=== PATIENT | female | born 1980 | race Caucasian/White ===

== ENCOUNTER 2017-10-14 09:41 | Emergency (ER) | payer OTHER ==
[~2017-10-14] VITALS: Ht 162.6 cm; Wt 74.8 kg
[~2017-10-14 09:41] MED LIST: ALBU90OI INH; ALPR1 PO; AMOX875 PO; Bactrim Ds Tab1 EACH PO; Bupropion Xl150 MG PO; CEPH500 PO; CLON.5; DIVA125EC PO; Esgic Tablet1 EACH PO; FLUT110OIA INH; FLUT44OIA INH; GABA300 PO; HYDR25SUP PR; Imitrex100 MG PO; Imitrex25 MG PO; LAVAP17G PO; Loxapine5 MG PO; Naprosyn500 MG PO; ONDA4 PO; ONDA4ODT MM; ONDA8 PO; OXYC1TAB11; Omeprazole20 M1; POTCHL10ER PO; PRODEXEL PO; PROGESTERONE200 MG PO; PROM25S PR; PROMETHEGAN RC; Pepcid40 MG PO; Prazosin HCl2 MG PO; Prednisone20 MG PO; Ranitidine HCl300 M1 PO; Senna8.6 MG PO; TRAM50 PO; TRAZ100 PO; TRAZ50; Tylenol325 MG PO; Ventolin/Prove6.7 GM INH; Vistaril50 MG PO; ZOLP5 PO; Zofran Odt4 MG PO; Zofran Odt8 MG SL
[2017-10-14] MEDS ORDERED: TRAM50 PO (09:47)
[2017-10-14] MEDS ORDERED: Loxapine25 MG PO (09:47)
[2017-10-14] MEDS ORDERED: Imitrex100 MG PO (09:47)
[2017-10-14] MEDS ORDERED: GABA600 PO (09:47)
[2017-10-14] MEDS ORDERED: Zofran Odt4 MG SL (10:10)
== END 2017-10-14 11:51 | disposition home or self-care (01) ==
LOC: ER 09:41
DX: G43.909 Migraine, unspecified, not intractable, without status migrainosus (principal); Z88.1 Allergy status to other antibiotic agents; Z88.8 Allergy status to other drugs, medicaments and biological substances; Z91.018 Allergy to other foods; Z79.899 Other long term (current) drug therapy; F17.200 Nicotine dependence, unspecified, uncomplicated
CPT/HCPCS: 96361; 96374; 96375; 99283; J0780; J1200; J1885; J7030

== ENCOUNTER → 2019-09-28 | Outpatient (CLI) | payer OTHER ==
[~2019-09-28] MED LIST changes: +GABA600 PO; +Loxapine25 MG PO; +Zofran Odt4 MG SL
== END | disposition home or self-care (01) ==
LOC: LAB 18:43 → LAB SHORT 18:43
DX: R10.30 Lower abdominal pain, unspecified (principal)
CPT/HCPCS: 87086

== ENCOUNTER → 2020-01-19 | Outpatient (CLI) | payer OTHER | END | disposition home or self-care (01) | DX: L02.01 Cutaneous abscess of face (principal) ==

== ENCOUNTER → 2020-05-16 | Outpatient (CLI) | payer OTHER | END | disposition home or self-care (01) | LOC: LAB SHORT 13:53 → LAB EV 13:53 | DX: L02.91 Cutaneous abscess, unspecified (principal) | CPT/HCPCS: 87070; 87075; 87077; 87186; 87205 ==

== ENCOUNTER 2020-07-24 11:10 | Day surgery (SDC) | payer OTHER ==
[~2020-07-24] VITALS: Ht 162.6 cm; Wt 87.7 kg
[2020-07-24] MEDS ORDERED: PARO25 PO (12:03)
[2020-07-24] MEDS ORDERED: BENZ1 PO (12:04)
[2020-07-24] MEDS ORDERED: METF500 PO (12:04)
[2020-07-24] MEDS ORDERED: ALPR.5 PO (12:05)
[2020-07-24] MEDS ORDERED: LAMO100 (12:05)
[2020-07-24] MEDS ORDERED: HYDR1TAB94 PO (12:07)
--- NOTE | 2020-07-24 13:15 | NUR ---
07/24/20 1315 Yeison Zuleta PT WITH THICK CALLOUSES ON FOOT. FOOT WAS VERY DIRTY. EXTRA CARE WAS TAKEN WITH THE CLEANING AND PREP OF THE FOOT.
--- NOTE | 2020-07-24 15:03 | NUR ---
07/24/20 1503 Juanita Najera INSTRUCTED PT TO BE NON WEIGHT BEARING WHILE USING CRUTCHES. PT NEED EXTRA TIME DEMONSTRATING HOW TO USE CRUTCHES.
== END 2020-07-24 14:54 | disposition home or self-care (01) ==
LOC: ORSCSDS 11:10
PROVIDERS: Podiatrist Foot & Ankle Surgery
PROC: 0QSP04Z Reposition Left Metatarsal with Internal Fixation Device, Open Approach (ICD-10-PCS; principal; 2020-07-24 12:30)
DX: S92.352A Displaced fracture of fifth metatarsal bone, left foot, initial encounter for closed fracture (principal); F17.210 Nicotine dependence, cigarettes, uncomplicated
CPT/HCPCS: C1713; J0171; J0690; J2250; J2405; J2704; J3010; J7120

== ENCOUNTER → 2020-08-17 | Outpatient (CLI) | payer OTHER ==
[~2020-08-17] MED LIST changes: +ALPR.5 PO; +BENZ1 PO; +HYDR1TAB94 PO; +LAMO100; +METF500 PO; +PARO25 PO
== END | disposition home or self-care (01) ==
LOC: LAB SHORT 15:40 → LAB 15:40
DX: D48.5 Neoplasm of uncertain behavior of skin (principal)
CPT/HCPCS: 87070; 87075; 87077; 87147; 87186; 87205

== ENCOUNTER → 2020-09-05 | Outpatient (CLI) | payer OTHER | LOC: LAB SHORT 19:00 | DX: D48.5 Neoplasm of uncertain behavior of skin (principal) | CPT/HCPCS: 87070; 87205 ==

== ENCOUNTER → 2021-04-26 | Outpatient (CLI) | payer OTHER ==
[~2021-04-26] MED LIST changes: +Vibramycin100 MG PO
[2021-04-26 17:22] LABS: BASOPHILS ABSOLUTE AUTO 0.05 K/mm3 (0.00-0.23); BASOPHILS PERCENT AUTO 1 % (0-2); EOSINOPHILS ABSOLUTE AUTO 0.29 K/mm3 (0.00-0.68); EOSINOPHILS PERCENT AUTO 3 % (0-6); Hematocrit 35.9 % (33.0-51.0); Hemoglobin 12.1 g/dL (11.5-16.0); IMMATURE GRAN ABSOLUTE AUTO 0.07 K/mm3 (0.00-0.10); IMMATURE GRAN PERCENT AUTO 1 % (0-1); LYMPHOCYTES ABSOLUTE AUTO 1.12 K/mm3 (0.84-5.20); LYMPHOCYTES PERCENT AUTO 12 % (21-46); MONOCYTES ABSOLUTE AUTO 0.51 K/mm3 (0.16-1.47); MONOCYTES PERCENT AUTO 5 % (4-13); Mean Corpuscular HGB 34.7 pg (26.0-34.0); Mean Corpuscular HGB Conc 33.7 g/dL (31.5-36.5); Mean Corpuscular Volume 103 fL (80-100); NEUTROPHILS PERCENT AUTO 79 % (41-73); Platelet Count 215 K/mm3 (150-400); RDW Coefficient Variation 12.8 % (11.7-14.2); RDW Standard Deviation 47.5 fL (35.1-46.3); Red Blood Cell Count 3.49 M/mm3 (3.80-5.20); White Blood Cell Count 9.54 K/mm3 (4.00-11.30)
[2021-04-26 17:28] LABS: Bun/Creatinine Ratio 6.3 (12.0-20.0); Creatinine, Blood 1.27 mg/dL (0.40-1.00); Potassium, Blood 3.7 mmol/L (3.5-5.5)
== END | disposition home or self-care (01) ==
LOC: LAB 17:16 → LAB SHORT 17:16
PROVIDERS: Family Medicine
DX: L03.113 Cellulitis of right upper limb (principal)
CPT/HCPCS: 80048; 85025; 86140

== ENCOUNTER 2021-04-27 12:32 | Emergency (ER) | payer OTHER ==
[~2021-04-27] VITALS: Ht 162.6 cm; Wt 90.7 kg
[~2021-04-27 12:32] MED LIST changes: -Vibramycin100 MG PO
[2021-04-27] MEDS ORDERED: HYDR1TAB94 PO ×2 (14:13→14:32)
[2021-04-27] MEDS ORDERED: Vibramycin100 MG PO (14:13)
== END 2021-04-27 15:04 | disposition home or self-care (01) ==
LOC: ER 12:32
DX: L02.511 Cutaneous abscess of right hand (principal); B95.62 Methicillin resistant Staphylococcus aureus infection as the cause of diseases classified elsewhere; Z88.1 Allergy status to other antibiotic agents; Z91.018 Allergy to other foods; Z88.5 Allergy status to narcotic agent; Z88.8 Allergy status to other drugs, medicaments and biological substances; Z79.84 Long term (current) use of oral hypoglycemic drugs; Z79.899 Other long term (current) drug therapy
CPT/HCPCS: 10060; 76882; 87070; 87075; 87077; 87147; 87186; 87205; 90471; 90714; 96372-59; 99283-25; J1885

== ENCOUNTER 2021-06-04 13:52 | Emergency (ER) | payer OTHER ==
[~2021-06-04] VITALS: Ht 162.6 cm; Wt 87.5 kg
[~2021-06-04 13:52] MED LIST changes: +Vibramycin100 MG PO
[2021-06-04] MEDS ORDERED: Vibramycin100 MG PO (15:30)
== END 2021-06-04 15:53 | disposition home or self-care (01) ==
LOC: ER 13:52
DX: S60.311A Abrasion of right thumb, initial encounter (principal); S60.511A Abrasion of right hand, initial encounter; Z88.1 Allergy status to other antibiotic agents; Z88.5 Allergy status to narcotic agent; Z88.8 Allergy status to other drugs, medicaments and biological substances; Z91.018 Allergy to other foods; Z79.899 Other long term (current) drug therapy; Z79.84 Long term (current) use of oral hypoglycemic drugs; X58.XXXA Exposure to other specified factors, initial encounter
CPT/HCPCS: 73140; 76882; 99283-25

== ENCOUNTER 2022-04-03 01:22 | Inpatient (IN) | payer OTHER ==
[~2022-04-03] VITALS: Ht 170.2 cm; Wt 84.4 kg
[~2022-04-03 01:22] MED LIST changes: -GABA600 PO; -LAMO100; +Lamictal200 MG PO
[2022-04-03 02:10] LABS: PCO2 Arterial 51.2 mmHg (35-45); PO2 Arterial 104 mmHg (80-100)
[2022-04-03 02:11] LABS: pH Blood Arterial 7.29 (7.35-7.45)
[2022-04-03 02:18] LABS: BASOPHILS ABSOLUTE AUTO 0.02 K/mm3 (0.00-0.23); BASOPHILS PERCENT AUTO 1 % (0-2); EOSINOPHILS PERCENT AUTO 0 % (0-6); Hematocrit 37.1 % (33.0-51.0); IMMATURE GRAN ABSOLUTE AUTO 0.02 K/mm3 (0.00-0.10); IMMATURE GRAN PERCENT AUTO 1 % (0-1); LYMPHOCYTES ABSOLUTE AUTO 1.43 K/mm3 (0.84-5.20); LYMPHOCYTES PERCENT AUTO 39 % (21-46); MONOCYTES ABSOLUTE AUTO 0.26 K/mm3 (0.16-1.47); MONOCYTES PERCENT AUTO 7 % (4-13); Mean Corpuscular HGB Conc 32.3 g/dL (31.5-36.5); Mean Corpuscular Volume 102 fL (80-100); Mean Platelet Volume 9.7 fL (9.1-12.4); NEUTROPHILS ABSOLUTE AUTO 1.98 K/mm3 (1.96-9.15); NEUTROPHILS PERCENT AUTO 54 % (41-73); Platelet Count 186 K/mm3 (150-400); RDW Coefficient Variation 12.3 % (11.7-14.2); RDW Standard Deviation 45.9 fL (35.1-46.3); Red Blood Cell Count 3.64 M/mm3 (3.80-5.20); White Blood Cell Count 3.71 K/mm3 (4.00-11.30)
[2022-04-03 02:37] LABS: International Normalized Ratio 1.02; Prothrombin Time Results 10.7 Sec (9.7-11.5)
[2022-04-03 02:44] LABS: Salicylate <1.7 mg/dL (2.8-20.0)
[2022-04-03 02:46] LABS: Acetaminophen, Random <2.0 ug/mL (10.0-30.0); Alanine Aminotransfer (ALT/SGP 32 U/L (12-78); Albumin, Blood 3.4 g/dL (3.4-5.0); Albumin/Globulin Ratio 1.1 (0.8-1.8); Alk Phos 72 U/L (50-136); Anion Gap 14 mmol/L (6-16); Aspartate Aminotrans (AST/SGOT 31 U/L (12-37); Bilirubin, Total 0.3 mg/dL (0.1-1.0); Blood Urea Nitrogen 11 mg/dL (8-24); Bun/Creatinine Ratio 8.5 (12.0-20.0); CO2, Blood 23 mmol/L (21-32); Calcium, Blood 7.8 mg/dL (8.5-10.1); Chloride, Blood 104 mmol/L (98-108); Globulin, Blood 3.1 g/dL (2.2-4.0); Glomerular Filtration Rate 53 (60-); Glucose, Blood 171 mg/dL (70-99); Potassium, Blood 3.4 mmol/L (3.5-5.5); Sodium, Blood 141 mmol/L (136-145); Total Protein, Blood 6.5 g/dL (6.4-8.2)
[2022-04-03 02:55] LABS: Source, Urine Foley catheter
[2022-04-03 03:00] LABS: Bilirubin, Urine Neg (Neg); Blood, Urine Neg (Neg); Glucose Qualitative, Urine Neg (Neg); Ketones, Urine Neg (Neg); Leukocyte Esterase, Urine 1+ (Neg); Nitrite, Urine Neg (Neg); Protein, Urine 1+ (Neg); Urobilinogen, Urine NORM (Normal)
[2022-04-03 03:11] LABS: Appearance, Urine Clear (Clear); Color, Urine Yellow (P-Yellow)
[2022-04-03 03:12] LABS: Bacteria Few /hpf; Red Blood Cells, Urine Not Seen /hpf (0-2); Squamous Epithelial Cells Few /hpf (Few); White Blood Cells, Urine 0-2 /hpf (0-5)
[2022-04-03 03:22] LABS: U Amphetamine Screen DETECTED; U Barbituate Screen Not Detected; U Benzodiazapine Screen DETECTED; U Buprenorphine Screen Not Detected; U Cannabinoids Screen DETECTED; U Cocaine Screen Not Detected; U Methadone Screen Not Detected; U Methamphetamine Screen DETECTED; U Opiates Screen Not Detected; U Oxycodone Screen Not Detected; U Phencyclidine Screen Not Detected; U Propoxyphene Screen Not Detected
[2022-04-03 03:33] LABS: Influenza A, PCR NEGATIVE (NEGATIVE); Influenza B, PCR NEGATIVE (NEGATIVE); Resp Syncytial Virus, PCR NEGATIVE (NEGATIVE); SARS-Cov-2 (COVID-19) PCR, MMC NEGATIVE (NEGATIVE)
[2022-04-03 04:16] LABS: Ethanol (Alcohol), Blood, Med 98 mg/dL
[2022-04-03] MEDS ORDERED: PROP10 PO (06:53)
[2022-04-03] MEDS ORDERED: MEDR10 PO (06:55)
[2022-04-03] MEDS ORDERED: OLANZAPINE ODT20 MG PO (06:56)
--- NOTE | 2022-04-03 07:15 | NUR ---
ASSUMPTION OF CARE PT REMAINS INTUBATED AND SEDATED AT THIS TIME. VENT SETTINGS AC/VC+ 18/400/5/30%. SHE IS RECEIVING PROPOFOL 80MCG/KG/MIN, VERSED 7MG/HR, AND NS 150ML/HR. SHE IS IN 4 POINT SOFT RESTRAINTS AT THIS TIME. PT BECOMES AGITATED DURING CARE AND NOXIOUS STIMULI WITH FACIAL GRIMACING AND MOVEMENT OF ALL 4 EXTREMITIES. SHE DOES NOT FOLLOW COMMANDS. LUNGS CLEAR IN UPPER LOBES, COARSE AND DIMINISHED IN BASES. OGT CLAMPED. BOWEL TONES HYPOACTIVE. FLORES PATENT AND DRAINING CLEAR YELLOW URINE TO GRAVITY. IO TO L LEG, POWERGLIDE TO MADY, AND PERIPHERAL TO LFA. VSS AT THIS TIME. SEE SHIFT ASSESSMENT.
--- NOTE | 2022-04-03 07:30 | NUR ---
0445: PT ARRIVES TO ICU VIA GURNEY FROM ER FOR DX ACUTE RESPIRATORY FAILURE WITH HYPOXIA, PT IS INTUBATED AND RT IS AT BEDSIDE FOR VENT SET UP, ETT MEASURES 23 CM AT TEETH. PT IS FULLY AWAKE ON ARRIVAL AND OPERATIONS SCHEDULER REPORTS THAT VERSED GTT WAS INCREASED TO 5 MG/HR DURING TRANSPORT TO ICU FROM RATE OF 1.5 MG/HR. PT IS SITTING UP AND ATTEMPTING TO SCOOT BUTTOCKS TO EDGE OF BED, DOES NOT REDIRECT WELL, PROPOFOL STARTED INFUSING. IV ACCESS IS NOTED 20 TO RIGHT BREAST WHICH IS INFUSING POTASSIUM AT 10 MEQ/HR, REDNESS IS NOTED SURROUNDING INSERTION SITE, POTASSIUM DISCONNECTED AND IV FLUSHED WITH BLANCHING NOTED TO BREAST, IV DC'D CATH INTACT. IV TO LEFT FOREARM DOES NOT ASPIRATE BLOOD INTO TUBING BUT DOES APPEAR TO FLUSH WELL, PROPOFOL AND VERSED INFUSING TO THIS ACCESS SITE. ATTEMPT TO FLUSH IO TO LEFT LOWER EXTREMITY RESULTS IN PT THRASHING ON BED AND KICKING FEET. IV ACCESS VIA ULTRASOUND IS ATTEMPTED TO RIGHT UPPER ARM WITHOUT SUCCESS BY LUDIN WILDE RN, EXTENDED DWELL ACCESS IS ATTEMPTED TO RIGHT UPPER ARM X 2 WITHOUT SUCCESS BY RAMYA LEÓN RN, EXTENDED DWELL ACCESS TO LEFT UPPER ARM IS ESTABLISHED BY NARINDER FARFAN RN AT 1ST ATTEMPT. PT IS NOTED TO CONTINUE TO SIT UP AND SCOOT AROUND TO EDGES OF BED DURING ACCESS ATTEMPTS. REFLEX LACTIC ACID SPECIMEN OBTAINED AND SENT TO LAB. PROPOFOL HAS BEEN TITRATED UP TO 80 MCG/KG/MIN, VERSED TITRATED TO 7 MG/HR, NS AT 150 ML/HR STARTED INFUSING PER ORDERS, POTASSIUM INFUSION RESUMED CONCURRENT WITH NS. PT CONTINUES INTERMITTENTLY AGITATED AND RESTLESS IN BED.
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
--- NOTE | 2022-04-03 08:20 | NUR ---
UPDATE PT WAKENING DURING CARE. SHE OPENS EYES TO COMMAND, IS ABLE TO ANSWER QUESTIONS BY NODDING/SHAKING HEAD, MAKES PURPOSEFUL MOVEMENTS WITH ALL EXTREMITIES. SHE IS ABLE TO STRONGLY SQUEEZE HANDS AND WIGGLE TOES TO COMMAND. PT C/O BACK PAIN AT THIS TIME.
--- NOTE | 2022-04-03 09:30 | NUR ---
UPDATE DR MORRIS AT BEDSIDE FOR EVAL. PLAN TO CHANGE SEDATIVE MEDICATION AND POSSIBLE EXTUBATION TODAY. VENT SETTINGS CHANGED TO SPONT. RR 15-20, TV 300S. PT STILL ABLE TO OPEN EYES AND FOLLOW COMMANDS ALTHOUGH SOMETIMES SLOW TO RESPOND. DURING CONVERSATION PT NODS HEAD "YES" TO TAKING MEDICATION LAST NIGHT. SHE SHAKES HEAD "NO" WHEN ASKED IF SHE TOOK MORE THAN PRESCRIBED. WHEN ASKED ABOUT RECREATIONAL DRUGS PT ATTEMPTS TO MOUTH WORDS THAT ARE NOT UNDERSTOOD AND CLOSES EYES. WHEN ASKED IF THIS WAS A SUICIDE ATTEMPT SHE SHAKES HEAD "NO".
--- NOTE | 2022-04-03 12:00 | NUR ---
HOME MEDICATIONS MULTIPLE HOME MEDICATIONS ON BEDSIDE TABLE. ALL BOTTLES PACKAGED IN GREEN MED BAG AND SENT TO PHARMACY.
--- NOTE | 2022-04-03 14:13 | NUR ---
APNEIC PERIODS PT REMAINS ON SPONT SINCE APPROX 0930 THIS AM. APNEIC PERIOD TRIGGERS AC/VC ON VENT. OSCAR TREVIZO AND THIS RN AT BEDSIDE. PT WAKENS EASILY TO VERBAL STIMULI, IS ABLE TO ANSWER QUESTIONS BY NODDING/SHAKING HEAD, THEN FALLS BACK ASLEEP. SHE IS RECEIVING PRECEDEX 0.5MCG/KG/HR, TITRATED TO 0.2MCG/KG/HR. PROPOFOL HAS BEEN ON STANDBY APPROX 1HR. PT HAS MULTIPLE APNEIC PERIODS WHERE VENT TRIGGERS TO AC/VC. DR MORRIS AT BEDSIDE. PLAN TO REMAIN ON SPONT TOLERATED AND MONITOR UNTIL TOMORROW.
--- NOTE | 2022-04-03 16:13 | NUR ---
UPDATE PT AWAKE DURING BEDBATH. PROPOFOL ON STANDBY AND PRECEDEX AT 0.2MCG/KG/MIN. SHE IS ANSWERING QUESTIONS BY NODDING/SHAKING HEAD, COMMUNICATING BY WRITING, AND MAKES STRONG PURPOSEFUL MOVEMENTS. RESTRAINTS OFF DURING CARE. EXPLAINED IMPORTANCE OF NOT TOUCHING ETT SEVERAL TIMES, PT NODS IN UNDERSTANDING. PT HELPS DURING CARE, WRITES QUESTIONS ON PAPER, TEXTS ON CELL PHONE. DR MORRIS AT BEDSIDE FOR EVAL. PT CONTINUES TO OCCASIONALLY HAVE APNEIC PERIODS. SHE WILL REMAIN INTUBATED UNTIL TOMORROW. BILAT SOFT WRIST RESTRAINTS APPLIED, EXPLAINED TO PT, PT NODS IN UNDERSTANDING. PRECEDEX TITRATED TO 0.5MCG/KG/HR FOR COMFORT. CALL LIGHT WITHIN REACH.
--- NOTE | 2022-04-03 17:53 | NUR ---
SHIFT SUMMARY PT REMAINS INTUBATED WITH VENT SETTINGS SVC 8/400/5/25%. SHE IS RECEIVING PRECEDEX 0.5MCG/KG/HR. SHE WAKENS TO VERBAL STIMULI, COMMUNICATES BY NODDING/SHAKING HEAD AND WRITING. C/O THROAT AND BACK PAIN, MEDICATED PER EMAR. OGT CLAMPED. BOWEL TONES HYPOACTIVE. FLORES PATENT AND DRAINING TO GRAVITY. URINE YELLOW, OCCASIONALLY CLOUDY WITH SEDIMENT. WILL REPORT TO ONCOMING RN.
--- NOTE | 2022-04-03 21:21 | NUR ---
ASSUMED CARE AT 1900 PATIENT IS INTUBATED AND SEDATED ON PRECEDEX, ALERT AND ORIENTED. FOLLOWS COMMANDS AND IS ABLE TO WRITE TO COMMUNICATE. ABLE TO NOD YES TO PAIN, MEDICATED PER EMAR. PATIENT ON VENT SIMV, EVEN WHEN AWAKE PATIENT TAKING SLOW SHALLOW BREATHS, RT TO ROOM TO CHANGE PS, PATIENT CONSISTENTLY COUGHING AND COMPLAINS OF PAIN IN HER THROAT, MEDICATED PER EMAR. PATIENT NO LONGER FIGHTING VENT HOWEVER BREATHS SHALLOW AND SLOW. UNABLE TO KEEP PATIENT COMFORTABLE AND TOLERATING VENT WITHOUT DROPPING RR AND DRIVE, RT TO ROOM AND PATIENT CHANGED TO AC VC+ 16/400/5/25%. PATIENT NOW RESTING COMFORTABLY. SUCTIONING MODERATE AMOUNTS OF WHELAN SPUTUM FROM ETT. HR SR 80S, BP STABLE, NODS NO TO CP/PRESSURE. OG TO LIS, WITH SMALL AMOUNT OF GREEN BILE. TEMP FLORES PATENT AND DRAINING TO GRAVITY. PATIENT ABLE TO MOVE SELF IN BED, ASSISTANCE OFFERED EVERY TWO HOURS. CALL LIGHT IN REACH. SEE SHIFT ASSESSMENT FOR MORE INFORMATION.
--- NOTE | 2022-04-03 23:56 | NUR ---
PATIENT IS BECOMING MORE AGITATED AND FIGHTING THE VENTILATOR, ATTEMPTING TO PULL ETT OUT, NODS YES TO DISCOMFORT, PRECEDEX HAS BEEN AT 0.7MCG/KG/HR AND FENTANYL GIVEN Q2 HOURS, PROPOFOL RESTARTED.
[2022-04-04 03:27] LABS: BASOPHILS ABSOLUTE AUTO 0.02 K/mm3 (0.00-0.23); BASOPHILS PERCENT AUTO 0 % (0-2); EOSINOPHILS ABSOLUTE AUTO 0.02 K/mm3 (0.00-0.68); EOSINOPHILS PERCENT AUTO 0 % (0-6); Hematocrit 29.1 % (33.0-51.0); Hemoglobin 10.3 g/dL (11.5-16.0); IMMATURE GRAN ABSOLUTE AUTO 0.02 K/mm3 (0.00-0.10); IMMATURE GRAN PERCENT AUTO 0 % (0-1); LYMPHOCYTES ABSOLUTE AUTO 0.85 K/mm3 (0.84-5.20); LYMPHOCYTES PERCENT AUTO 18 % (21-46); MONOCYTES ABSOLUTE AUTO 0.35 K/mm3 (0.16-1.47); MONOCYTES PERCENT AUTO 7 % (4-13); Mean Corpuscular HGB 34.2 pg (26.0-34.0); Mean Corpuscular HGB Conc 35.4 g/dL (31.5-36.5); Mean Platelet Volume 9.5 fL (9.1-12.4); NEUTROPHILS ABSOLUTE AUTO 3.45 K/mm3 (1.96-9.15); NEUTROPHILS PERCENT AUTO 73 % (41-73); Platelet Count 149 K/mm3 (150-400); RDW Coefficient Variation 12.3 % (11.7-14.2); RDW Standard Deviation 43.2 fL (35.1-46.3); Red Blood Cell Count 3.01 M/mm3 (3.80-5.20); White Blood Cell Count 4.71 K/mm3 (4.00-11.30)
[2022-04-04 03:28] LABS: Mean Corpuscular Volume 97 fL (80-100)
[2022-04-04 03:54] LABS: Bun/Creatinine Ratio 8.7 (12.0-20.0); Creatinine, Blood 0.92 mg/dL (0.40-1.00); Magnesium, Blood 1.4 mg/dL (1.6-2.4); Phosphorus, Blood 1.6 mg/dL (2.5-4.9); Potassium, Blood 3.2 mmol/L (3.5-5.5)
--- NOTE | 2022-04-04 07:43 | NUR ---
SHIFT SUMMARY PATIENT REMAINS INTUBATED, SEDATION INCREASED THROUGH THE NIGHT DUE TO DISCOMFORT AND AGITATION, PATIENT UNABLE TO TOLERATE VENT, ATTEMPTING TO PULL TUBE OUT. PROPOFOL AND PRECEDEX INF WITH FENTANYL PRN. VENT SETTING UNCHANGED FROM PREVIOUS NOTE. STILL SUCTIONING MODERATE AMOUNTS OF THICK WHELAN SPUTUM FROM ETT. HR SR 60s-80s. BP STABLE. TEMP FLORES PATENT AND DRAINING TO GRAVITY. OG TO LIS WITH GREEN BILE OUTPUT. PATIENT ABLE TO REPOSITION SELF, ASSISTANCE OFFERED Q2 HOURS.
--- NOTE | 2022-04-04 08:00 | NUR ---
ASSUMED CARE: REPORT RECEIVED FROM LUDIN Franco RN. ASSUMED CARE OF THIS PT AT APPROX 0700. ON ASSESSMENT, THE PT IS RESTING QUIETLY. PROPOFOL & PRECEDEX INFUSING FOR SEDATION/ VENT TOLERANCE. SHE IS ABLE TO AWAKEN EASILY TO VERBAL STIMULUS & FOLLOW DIRECTIONS, ANSWER YES/ NO QUESTIONS W/O DIFFICULTY. LS ARE COARSE IN UPPERS, DIM T/O. VENT SETTINGS: AC/VC 16/400/5/25% W/ O2 SATS > 95%. MONITOR SHOWS SR W/ HR 60-80s, BP STABLE. OGT IN PLACE TO LIS, SMALL AMNT GREEN BILE OUTPUT NOTED. TEMP FLORES PATENT/ DRAINING YELLOW URINE. SKIN CONDITION OVERALL FRAGILE, W/ NUMEROUS AREAS OF ECCHYMOSIS. Q2H REPOSITIONING TO MAINTAIN SKIN INTEGRITY. WILL CONTINUE TO MONITOR & UPDATE NEEDED.
--- NOTE | 2022-04-04 10:20 | NUR ---
DR MORRIS / SEDATION VACATION: PROVIDER AT BEDSIDE TO EVAL PT THIS AM. HE WOULD LIKE TO EXTUBATE THIS PT TODAY & HAS PLACED THE VENT ON SPONTANEOUS MODE W/ PS 10, PEEP 5 & 25% FIO2 AT 0925. PROPOFOL PLACED ON STANDBY AT THIS TIME, PRECEDEX CONTINUES INFUSING. PS INCREASED TO 12 AT 0930 BY RT ROJELIO, FOR APNEA ALARMING ON VENTILATOR, DECREASED BACK TO 10 AT APPROX 0945 WHEN PT MORE AWAKE & ABLE TO BETTER TOLERATE. THE PT CONTINUES TO DO WELL ON SPONTANEOUS & HAS BEEN ABLE TO WRITE IN FULL SENTENCES USING A PEN & PAPER. SHE ASKS WHEN THE ETT WILL BE REMOVED & "WHAT HAPPENED" TO HER REQUIRING HOSPITALIZATION. SHE HAS BRIEF PERIODS OF APNEA & THEN TAKES LARGE BREATHS IN W/ TVs READING > 1000 ML. NO DESATS NOTED DURING THIS TIME. DR MORRIS BACK TO BEDSIDE AT APPROX 1020 & STS THAT EXTUBATION IS OKAY TO OCCUR AT APPROX 1040 IF THE PT CONTINUES TO TOLERATE WELL. RT ROJELIO, NOTIFIED.
--- NOTE | 2022-04-04 11:24 | NUR ---
EXTUBATION / SI PRECAUTIONS / DR HERNANDES: THE PT HAS CONTINUED TO DO WELL DURING THIS TIME & HAS BEEN EXTUBATED TO ROOM AIR AT APPROX 1047. SHE HAS A STRONG COUGH & IS ABLE TO EXPECTORATE SPUTUM EFFICIENTLY, SHE USES YANKAUR FOR ORAL SUCTION W/O DIFFICULTY. RESTRAINTS REMOVED AT 1045 JUST PRIOR TO EXTUBATION. AFTER EXTUBATION, THE PT HAS BEEN ABLE TO SPEAK IN HUSHED TONES. THIS RN REMAINS AT BEDSIDE DURING THIS TIME TO COMPLETE SUICIDE RISK REASSESSMENT. THE PT HAS ANSWERED "NO" TO ALL QUESTIONS ON [place] RISK ASSESSMENT. SHE STS THAT SHE USES DRUGS RECREATIONALLY BUT HAD NO INTENTION OF KILLING HERSELF & HAS NO SUICIDAL IDEATION. DR HERNANDES CONTACTED REGARDING THIS WHILE THIS RN REMAINS AT BEDSIDE. DR HERNANDES HAS COME DOWN & EVALUATED THE PT. SHE HAS PROVIDED THE SAME INFORMATION TO DR HERNANDES SHE DID TO THIS RN & NO SI PRECAUTIONS ARE IMPLEMENTED. DR HERNANDES STS THAT ONCE PRECEDEX TITRATED OFF, THE PT IS OKAY TO BE MEDICAL STATUS W/ TELE & THAT SHE WILL BE ABLE TO D/C HOME TOMORROW IF OFF OF OXYGEN & OTHERWISE DOING WELL. NO OTHER CHANGES AT THIS TIME.
--- NOTE | 2022-04-04 13:00 | NUR ---
ASSUMPTION OF CARE/ INITIAL ASSESSMENT PATIENT ALERT AND ORIENTED X 3. PATIENT THOUGHT SHE WAS IN [place]. BLIND IN R EYE. GOOD STRENGTH, ALTHOUGH OFF BALANCE ON FEET. 1 PERSON ASSIST. TEMP OF 99.2 DEGREES FAHRENHEIT. COMPLAINS OF THROAT AND EARS BEING SORE FROM BEING INTUBATED. PATIENT ON 2 L NC TO KEEP SATS 90% AND GREATER. LUNGS COARSE THROUGHOUT. PATIENT HAS PRODUCTIVE COUGH BUT IS SWALLOWING PHLEGM. PATIENT IN SR, HR IN THE 70S. SBP IN THE LOW 100S. ABD MODERATELY DISTENDED, HYPOACTIVE BOWEL SOUNDS NOTED. FLORES DRAINING YELLOW COLORED URINE. SKIN COOL AND DUSKY. SCATTERED BRUISES NOTED T/O BODY. SCAB TO L EYE/ NOSE. NS INFUSING TKO. BED LOW, CALL LIGHT IN REACH, BED ALARM ON PATIENT IMPULSIVE. WILL CONTINUE TO MONITOR PATIENT FREQUENTLY THROUGHOUT SHIFT.
--- NOTE | 2022-04-04 16:04 | NUR ---
PATIENT AFEBRILE NOW. PATIENT DECREASED TO RA AND REMAINS SATTING 90% AND GREATER. HR IN THE 70S. SBP IN THE 1-TEENS. ORDER TO DC FLORES, HOWEVER PATIENT DOES NOT WANT FLORES OUT AT THIS TIME; STATED SHE "WANTS TO SLEEP SOME MORE FIRST". NO COMPLAINTS AT THIS TIME. NO OTHER ACUTE CHANGES TO NOTE ON AT THIS TIME.
--- NOTE | 2022-04-04 17:15 | NUR ---
SHIFT SUMMARY PATIENT ALERT AND ORIENTED. TMAX ON DAY SHIFT OF 100.2 DEGREES FAHRENHEIT. PATIENT AFEBRILE AT LAST CHECK. PATIENT HAS GOOD STRENGTH BUT 1 PERSON ASSIST IS OFF BALANCE ON FEET AT THIS TIME. PATIENT HAS REMAINED NAPPING ON AND OFF. PATIENT DECREASED FROM 2 L NC TO RA AND REMAINS SATTING 90% AND GREATER. HR 60S TO 80S AND SBP LOW 100S TO 140S ON DAY SHIFT. PATIENT HAS REMAINED IN SR. NO BM THIS SHIFT. DIET BEING ADVANCED SLOWLY. 1700 MLS OF YELLOW URINE FROM FLORES. ORDER TO DC FLORES; PATIENT DOES NOT WANT OUT YET. NO CHANGES TO SKIN NOTED. PATIENT REPOSITIONING SELF. NS INFUSING TKO. PATIENT RECEIVED 30 MM KPHOS AND 2 G MAG REPLACEMENT ON DAY SHIFT. PRN XANAX ON EMAR; PATIENT TAKES AT HOME. NO COMPLAINTS AT THIS TIME. PATIENT WILL BE TRANSFERRED TO MEDICAL FLOOR SHORTLY.
--- NOTE | 2022-04-04 17:45 | NUR ---
PATIENT TRANSFERRED SUCCESSFULLY TO MEDICAL FLOOR, ROOM 310. ALL BELONGINGS SENT WITH PATIENT.
--- NOTE | 2022-04-04 18:56 | NUR ---
SHIFT SUMMARY PT AXO, COOPERATIVE BUT FORGETFUL. PT ARRIVED TO ROOM AT 1743. PT STATES THAT SHE WANTS TO KEEP FLORES IN UNTIL SHE GETS SOME REST. IV PATENT AND INFUSING TKO. PT'S FATHER AT BEDSIDE WHO WANTED AN UPDATE ON PATIENT. WHEN THIS NURSE ASKED PERMISSION TO SPEAK WITH HER FATHER SHE WAS GUARDED AND SLIGHTLY SHAKING HER HEAD NO. SHE STATED THAT HE COULD KNOW GENERAL INFORMATION BUT DIDNT WANT HIM TO KNOW SPECIFICS. UPON SHIFT CHANGE PATIENT STATED THAT WE COULD SHARE WHICH SUBSTANCES AND MORE SPECIFIC INFORMATION. VSS. REPORT GIVEN TO WELDER APPRENTICE ARC NURSE WHO ASSUMES CARE AT THIS TIME.
[2022-04-04] MEDS ORDERED: Loxapine50 MG PO (22:17)
[2022-04-05 05:27] LABS: BASOPHILS ABSOLUTE AUTO 0.02 K/mm3 (0.00-0.23); BASOPHILS PERCENT AUTO 1 % (0-2); EOSINOPHILS ABSOLUTE AUTO 0.01 K/mm3 (0.00-0.68); EOSINOPHILS PERCENT AUTO 0 % (0-6); Hematocrit 28.7 % (33.0-51.0); IMMATURE GRAN ABSOLUTE AUTO 0.02 K/mm3 (0.00-0.10); IMMATURE GRAN PERCENT AUTO 1 % (0-1); LYMPHOCYTES ABSOLUTE AUTO 0.88 K/mm3 (0.84-5.20); LYMPHOCYTES PERCENT AUTO 24 % (21-46); MONOCYTES ABSOLUTE AUTO 0.28 K/mm3 (0.16-1.47); MONOCYTES PERCENT AUTO 8 % (4-13); Mean Corpuscular HGB 33.2 pg (26.0-34.0); Mean Corpuscular HGB Conc 34.8 g/dL (31.5-36.5); Mean Corpuscular Volume 95 fL (80-100); NEUTROPHILS ABSOLUTE AUTO 2.43 K/mm3 (1.96-9.15); NEUTROPHILS PERCENT AUTO 67 % (41-73); Platelet Count 175 K/mm3 (150-400); RDW Coefficient Variation 12.1 % (11.7-14.2); Red Blood Cell Count 3.01 M/mm3 (3.80-5.20); White Blood Cell Count 3.64 K/mm3 (4.00-11.30)
--- NOTE | 2022-04-05 05:35 | NUR ---
NO ACUTE CHANGES DURING THE NIGHT. FLORES AND PERIPHERAL IV REMOVED AT START OF SHIFT. PT INDEPENDENT IN ROOM NEEDING OCCASIONAL HELP WHEN HOOKED UP TO THE IV. PT GIVEN XANEX TWICE AND TYLENOL FOR HEADACHE
[2022-04-05 06:01] LABS: Albumin, Blood 2.4 g/dL (3.4-5.0); Anion Gap 8 mmol/L (6-16); Blood Urea Nitrogen 4 mg/dL (8-24); Bun/Creatinine Ratio 5.5 (12.0-20.0); CO2, Blood 25 mmol/L (21-32); Calcium, Blood 7.4 mg/dL (8.5-10.1); Chloride, Blood 109 mmol/L (98-108); Creatinine, Blood 0.73 mg/dL (0.40-1.00); Glomerular Filtration Rate 106 (60-); Glucose, Blood 118 mg/dL (70-99); Magnesium, Blood 2.3 mg/dL (1.6-2.4); Phosphorus, Blood 2.5 mg/dL (2.5-4.9); Potassium, Blood 2.6 mmol/L (3.5-5.5); Sodium, Blood 142 mmol/L (136-145)
[2022-04-05 10:28] LABS: Vancomycin, Trough 26.4 ug/mL (5.0-10.0)
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
[2022-04-06 05:42] LABS: Vancomycin, Random 6.2 ug/mL
--- NOTE | 2022-04-06 05:46 | NUR ---
PT SLEPT THROUGH THE NIGHT WITH NO SIGNIFICANT CHANGES.
[2022-04-06 08:16] LABS: BASOPHILS ABSOLUTE AUTO 0.02 K/mm3 (0.00-0.23); BASOPHILS PERCENT AUTO 1 % (0-2); EOSINOPHILS ABSOLUTE AUTO 0.03 K/mm3 (0.00-0.68); EOSINOPHILS PERCENT AUTO 1 % (0-6); Hematocrit 30.2 % (33.0-51.0); Hemoglobin 10.7 g/dL (11.5-16.0); IMMATURE GRAN ABSOLUTE AUTO 0.03 K/mm3 (0.00-0.10); IMMATURE GRAN PERCENT AUTO 1 % (0-1); LYMPHOCYTES ABSOLUTE AUTO 1.16 K/mm3 (0.84-5.20); LYMPHOCYTES PERCENT AUTO 31 % (21-46); MONOCYTES ABSOLUTE AUTO 0.33 K/mm3 (0.16-1.47); MONOCYTES PERCENT AUTO 9 % (4-13); Mean Corpuscular HGB 33.6 pg (26.0-34.0); Mean Corpuscular HGB Conc 35.4 g/dL (31.5-36.5); Mean Corpuscular Volume 95 fL (80-100); Mean Platelet Volume 9.8 fL (9.1-12.4); NEUTROPHILS ABSOLUTE AUTO 2.12 K/mm3 (1.96-9.15); NEUTROPHILS PERCENT AUTO 58 % (41-73); Platelet Count 201 K/mm3 (150-400); RDW Coefficient Variation 11.8 % (11.7-14.2); RDW Standard Deviation 40.9 fL (35.1-46.3); Red Blood Cell Count 3.18 M/mm3 (3.80-5.20); White Blood Cell Count 3.69 K/mm3 (4.00-11.30)
[2022-04-06 08:28] LABS: Albumin, Blood 2.5 g/dL (3.4-5.0); Anion Gap 10 mmol/L (6-16); Blood Urea Nitrogen 5 mg/dL (8-24); Bun/Creatinine Ratio 7.2 (12.0-20.0); CO2, Blood 24 mmol/L (21-32); Calcium, Blood 8.2 mg/dL (8.5-10.1); Chloride, Blood 110 mmol/L (98-108); Creatinine, Blood 0.69 mg/dL (0.40-1.00); Glomerular Filtration Rate 112 (60-); Glucose, Blood 87 mg/dL (70-99); Magnesium, Blood 1.9 mg/dL (1.6-2.4); Phosphorus, Blood 3.1 mg/dL (2.5-4.9); Potassium, Blood 3.2 mmol/L (3.5-5.5); Sodium, Blood 144 mmol/L (136-145)
[2022-04-06] MEDS ORDERED: SULTRIDS PO (11:39)
[2022-04-06] MEDS ORDERED: VISBIOME 112.51 EACH PO (11:39)
--- NOTE | 2022-04-06 15:57 | NUR ---
DISCHARGE SUMMARY PATIENT DISCHARGED HOME. DISCHARGE PAPERWORK REVIEWED WITH PATIENT AND QUESTIONS ANSWERED. PRESCRIPTIONS FAXED TO PATIENTS PREFERRED PHARMACY. PO BACTRIM GIVEN PRIOR TO PATIENT DISCHARGE, IV D/C'D. PATIENTS HOME MEDICATIONS RETURNED TO PATIENT. PATIENT AND ALL BELONGINGS TAKEN WITH AND TRANSPORTED VIA WHEELCHAIR TO PERSONAL CAR AND TAKEN VIA FAMILY.
== END 2022-04-06 15:50 | disposition home or self-care (01) | DRG 917 ==
LOC: ER 01:22 → ICUW 03:55 → MEDS 04-04 17:43
PROVIDERS: Internal Medicine; Internal Medicine Critical Care Medicine; Student in an Organized Health Care Education/Training Program; ADMIT Internal Medicine
PROC: 5A1935Z Respiratory Ventilation, Less than 24 Consecutive Hours (ICD-10-PCS; principal; 2022-04-03)
PROC: 0BH18EZ Insertion of Endotracheal Airway into Trachea, Via Natural or Artificial Opening Endoscopic (ICD-10-PCS; 2022-04-03)
PROC: 3E03329 Introduction of Other Anti-infective into Peripheral Vein, Percutaneous Approach (ICD-10-PCS; 2022-04-04)
DX: T43.621A Poisoning by amphetamines, accidental (unintentional), initial encounter (principal); A41.02 Sepsis due to Methicillin resistant Staphylococcus aureus; A41.9 Sepsis, unspecified organism; G92.8 Other toxic encephalopathy; J96.01 Acute respiratory failure with hypoxia; R65.21 Severe sepsis with septic shock; J69.0 Pneumonitis due to inhalation of food and vomit; J18.9 Pneumonia, unspecified organism; J15.212 Pneumonia due to Methicillin resistant Staphylococcus aureus; A41.53 Sepsis due to Serratia; N17.9 Acute kidney failure, unspecified; E87.6 Hypokalemia; T68.XXXA Hypothermia, initial encounter; F15.10 Other stimulant abuse, uncomplicated; E83.42 Hypomagnesemia; E83.39 Other disorders of phosphorus metabolism; F31.9 Bipolar disorder, unspecified; F41.9 Anxiety disorder, unspecified; N18.30 Chronic kidney disease, stage 3 unspecified; Z88.1 Allergy status to other antibiotic agents; Z88.5 Allergy status to narcotic agent; Z88.8 Allergy status to other drugs, medicaments and biological substances; Z91.018 Allergy to other foods; I50.9 Heart failure, unspecified; I25.2 Old myocardial infarction; Z98.890 Other specified postprocedural states; Z79.84 Long term (current) use of oral hypoglycemic drugs; Z79.899 Other long term (current) drug therapy
CPT/HCPCS: 0241U; 31500; 36415; 36600; 51702; 70450; 71045; 80048; 80053; 80069; 80202; 81001; 81025; 82330; 82803; 82947; 83605; 83735; 84100; 84443; 85025; 85610; 85730; 87040; 87070; 87077; 87147; 87186; 87205; 93005; 93010; 94002; 94003; 96365-59; 96375-59; 99291-25; A9270; C1751; G0480; J0610; J0696; J1650; J2060; J2250; J2405; J2704; J3010; J3370; J3475; J3480; J7030; J7050; J7060

== ENCOUNTER → 2022-05-20 | Outpatient (CLI) | payer OTHER ==
[~2022-05-20] MED LIST changes: +Loxapine50 MG PO; +MEDR10 PO; +OLANZAPINE ODT20 MG PO; +PROP10 PO; +SULTRIDS PO; +VISBIOME 112.51 EACH PO
== END | disposition home or self-care (01) ==
LOC: LAB SHORT 14:32
DX: R12 Heartburn (principal)
CPT/HCPCS: 87338